=== PATIENT | female | born 1935 | race Caucasian/White ===

== ENCOUNTER 2018-11-23 08:19 | Day surgery (SDC) | payer MEDICARE ==
[2018-11-23] MEDS ORDERED: Dextrose 5%-Lactated Ringers 1,000 ML IV SCH (08:45)
[2018-11-23] MEDS ORDERED: Midazolam 1 MG/ML 2 ML SDV ONE (09:16)
[2018-11-23] MEDS ORDERED: fentaNYL 100 MCG/2 ML SDV ONE (09:16)
[2018-11-23] MEDS ORDERED: Propofol 200 MG/20 ML SDV ONE (09:16)
[2018-11-23] MEDS ORDERED: Bacitracin Oint 1 GM U/D Packet ONE (09:21)
[2018-11-23] MEDS ORDERED: Lidocaine 1% with EPINEPHrine 1:100,000 50 ML MDV ONE (09:21)
[2018-11-23 11:51] VITALS: BP 113/56
--- NOTE | 2018-11-24 04:42 | OR ---
DATE OF PROCEDURE: 11/23/2018 PREOPERATIVE DIAGNOSIS: Rule out temporal arteritis. POSTOPERATIVE DIAGNOSIS: Rule out temporal arteritis. PROCEDURE: Bilateral temporal artery biopsies (01905) x2. ANESTHESIA: Local plus IV sedation. INDICATIONS FOR PROCEDURE: The patient is referred for bilateral temporal artery biopsies for the suspicion of possible temporal arteritis. She has already been started on prednisone 15 mg a day and was instructed to continue that until she follows up with Dr. Bales next week to review the results of today's biopsies. Otherwise, potential risks of the procedure including bleeding and infection were reviewed, as well as some cosmetic deformity in terms of the incision over the temples and the patient wishes to proceed. DETAILS OF PROCEDURE: The patient was taken to the operating room, placed in supine position. IV sedation was administered, after which the temporal arteries were marked out with skin marker. These arteries were both palpable and easily identified. Some hair over those areas were then incised. Both sides were then prepped and draped, anesthetized with 1% lidocaine mixed with Marcaine. A left-sided incision was made over the course of artery and carried down through the skin and subcutaneous tissue, roughly 3 cm segment artery was then excised between clamps. The remaining ends being suture ligated with 4-0 Vicryl stitch and the incision then closed with 4-0 Vicryl stitch in 2 layers as well along with a 6-0 Vicryl subcuticular stitch. The artery on the right side was fairly normal in appearance. Attention was taken to the left side. Identical incision and excisional procedure and closure were accomplished. This artery appeared to be somewhat thicker, but both arteries did not appear to be obviously inflamed per se. Upon closure of the incisions with the final layer of 6-0 Vicryl stitch, Dermabond was applied, and the patient was taken to the recovery room in satisfactory condition. There were no evident complications. The patient will be following up with Denisha Bales MD, next week to review the pathologic findings and to proceed with medical management as indicated at that point. Deandre Law MD /[id number]
== END 2018-11-23 12:01 | disposition home or self-care (01) ==
LOC: JP.SDS 08:19
PROVIDERS: ATTEND Surgery
DX: M31.6 Other giant cell arteritis (principal); I12.9 Hypertensive chronic kidney disease with stage 1 through stage 4 chronic kidney disease, or unspecified chronic kidney disease; N18.3 Chronic kidney disease, stage 3 (moderate); E78.5 Hyperlipidemia, unspecified
CPT/HCPCS: 37609; 88305; 88313; J2250; J2704; J3010; J7042

== ENCOUNTER 2025-06-11 11:53 | Emergency (ER) | payer MEDICARE ==
[2025-06-11 12:38] LABS: BASOPHILS ABSOLUTE AUTO 0.06 K/uL (0.00-0.10); BASOPHILS PERCENT AUTO 0.9 % (0.1-1.3); EOSINOPHILS ABSOLUTE AUTO 0.11 K/uL (0.00-0.40); EOSINOPHILS PERCENT AUTO 1.6 % (0.0-5.4); IMMATURE GRAN ABSOLUTE AUTO 0.03 K/uL (0.00-0.23); IMMATURE GRAN PERCENT AUTO 0.4 % (0.0-0.7); LYMPHOCYTES ABSOLUTE AUTO 1.61 K/uL (0.8-3.3); LYMPHOCYTES PERCENT AUTO 23.9 % (11.4-47.7); MONOCYTES ABSOLUTE AUTO 0.59 K/uL (0.20-0.90); MONOCYTES PERCENT AUTO 8.8 % (3.3-12.6); NEUTROPHILS ABSOLUTE AUTO 4.33 K/uL (1.0-7.6); NEUTROPHILS PERCENT AUTO 64.4 % (40.0-78.1); PLATELET COUNT,PLT 220 K/uL (130-375); RED BLOOD CELL COUNT 4.26 M/uL (3.77-5.24); WHITE BLOOD CELL COUNT,WBC 6.7 K/uL (3.2-11.0)
[2025-06-11 12:49] LABS: INR 1.1
[2025-06-11 13:03] LABS: A/G RATIO 1.0 (1.2-2.2); ALANINE AMINOTRANSFERASE,ALT 33 U/L (12-78); ASPARTATE AMNIOTRANSFERASE,AST 34 U/L (15-37); BILIRUBIN TOTAL 0.7 mg/dL (0.2-1.0); BLOOD UREA NITROGEN,BUN 13 mg/dL (7-18); CARBON DIOXIDE,CO2 30 mmol/L (21-32); CHLORIDE,CL 101 mmol/L (100-108); CREATININE 0.9 mg/dL (0.6-1.0); EST CRCL DRUG DOSING (CG) 35.74 mL/min; ESTIMATED GFR 61 mL/min (>60); GLUCOSE RANDOM 106 mg/dL (74-106); POTASSIUM,K 3.6 mmol/L (3.6-5.2); PRO B-TYPE NATRIUR PEPT,BNPPRO 2838.0 pg/mL (5-450); PROTEIN TOTAL,TP 6.4 g/dL (6.4-8.2); SODIUM,NA 137 mmol/L (140-148); TROPONIN I HIGH SENSITIVITY 8.9 pg/mL (<=60.3)
[2025-06-11] MEDS: Furosemide 20 MG/2 ML VIAL IVPUSH ONE (13:41)
== END 2025-06-11 15:20 | disposition home or self-care (01) ==
LOC: JP.ED 11:53
DX: I48.91 Unspecified atrial fibrillation (principal); I11.0 Hypertensive heart disease with heart failure; I50.9 Heart failure, unspecified; E78.00 Pure hypercholesterolemia, unspecified; Z88.8 Allergy status to other drugs, medicaments and biological substances; Z88.5 Allergy status to narcotic agent; Z79.01 Long term (current) use of anticoagulants; Z79.899 Other long term (current) drug therapy; Z86.73 Personal history of transient ischemic attack (TIA), and cerebral infarction without residual deficits; Z90.49 Acquired absence of other specified parts of digestive tract; Z87.891 Personal history of nicotine dependence
CPT/HCPCS: 36415; 80053; 83880; 84484; 85025; 85610; 93005; 96374; 99285; J1938; 93010; 99284

== ENCOUNTER 2025-08-06 10:25 | Emergency (ER) | payer MEDICARE ==
[2025-08-06 12:08] LABS: BASOPHILS PERCENT AUTO 0.1 % (0.1-1.3); EOSINOPHILS PERCENT AUTO 0.1 % (0.0-5.4); IMMATURE GRAN ABSOLUTE AUTO 0.09 K/uL (0.00-0.23); IMMATURE GRAN PERCENT AUTO 0.8 % (0.0-0.7); LYMPHOCYTES ABSOLUTE AUTO 0.67 K/uL (0.8-3.3); LYMPHOCYTES PERCENT AUTO 5.8 % (11.4-47.7); MONOCYTES ABSOLUTE AUTO 0.82 K/uL (0.20-0.90); MONOCYTES PERCENT AUTO 7.1 % (3.3-12.6); NEUTROPHILS ABSOLUTE AUTO 10.00 K/uL (1.0-7.6); NEUTROPHILS PERCENT AUTO 86.1 % (40.0-78.1); PLATELET COUNT,PLT 182 K/uL (130-375); RED BLOOD CELL COUNT 3.88 M/uL (3.77-5.24); WHITE BLOOD CELL COUNT,WBC 11.6 K/uL (3.2-11.0)
[2025-08-06 12:14] LABS: BASOPHILS ABSOLUTE AUTO 0.01 K/uL (0.00-0.10); EOSINOPHILS ABSOLUTE AUTO 0.01 K/uL (0.00-0.40)
[2025-08-06 12:29] LABS: A/G RATIO 0.9 (1.2-2.2); ALANINE AMINOTRANSFERASE,ALT 28 U/L (12-78); ASPARTATE AMNIOTRANSFERASE,AST 36 U/L (15-37); BILIRUBIN TOTAL 1.0 mg/dL (0.2-1.0); BLOOD UREA NITROGEN,BUN 16 mg/dL (7-18); CARBON DIOXIDE,CO2 30 mmol/L (21-32); CHLORIDE,CL 102 mmol/L (100-108); CREATININE 1.0 mg/dL (0.6-1.0); EST CRCL DRUG DOSING (CG) 32.17 mL/min; ESTIMATED GFR 54 mL/min (>60); GLUCOSE RANDOM 150 mg/dL (74-106); POTASSIUM,K 3.0 mmol/L (3.6-5.2); PROTEIN TOTAL,TP 6.6 g/dL (6.4-8.2); SODIUM,NA 140 mmol/L (140-148)
[2025-08-06 12:32] LABS: LACTIC ACID 1.3 mmol/L (0.4-2.0)
[2025-08-06] MEDS: NS + KCl 20mEq/L 1,000 ML IV SCH (13:15)
[2025-08-06] MEDS: Potassium Chloride 20 MEQ Tab.ER PO ONE (13:16)
== END 2025-08-06 16:37 | disposition home or self-care (01) ==
LOC: JP.ED 10:25
DX: E87.6 Hypokalemia (principal); J44.9 Chronic obstructive pulmonary disease, unspecified; I10 Essential (primary) hypertension; I48.91 Unspecified atrial fibrillation; E78.00 Pure hypercholesterolemia, unspecified; E66.9 Obesity, unspecified; Z79.01 Long term (current) use of anticoagulants; Z79.899 Other long term (current) drug therapy; Z88.5 Allergy status to narcotic agent; Z88.6 Allergy status to analgesic agent; Z88.2 Allergy status to sulfonamides; Z88.8 Allergy status to other drugs, medicaments and biological substances; Z86.73 Personal history of transient ischemic attack (TIA), and cerebral infarction without residual deficits; Z68.26 Body mass index [BMI] 26.0-26.9, adult
CPT/HCPCS: 36415; 80053; 83605; 84132; 85025; 86140; 96365; 96366; 99284; A9270; J3480